=== PATIENT | male | born 1990 | race Caucasian/White ===

== ENCOUNTER 2018-12-14 07:21 | Emergency (ER) | payer MEDICAID ==
[~2018-12-14] VITALS: Ht 170.2 cm; Wt 67.9 kg
[~2018-12-14 07:21] MED LIST: CYCL-1 PO; HYDR-4383 PO
[2018-12-14 07:24] VITALS: BP 111/74
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
== END 2018-12-14 07:57 | disposition home or self-care (01) ==
LOC: ER 07:21
DX: S01.81XA Laceration without foreign body of other part of head, initial encounter (principal); Z53.21 Procedure and treatment not carried out due to patient leaving prior to being seen by health care provider; W45.8XXA Other foreign body or object entering through skin, initial encounter; Y93.89 Activity, other specified; Y92.89 Other specified places as the place of occurrence of the external cause; Y99.8 Other external cause status